=== PATIENT | female | born 1975 ===

== ENCOUNTER 2016-09-28 19:37 | Emergency (ER) | payer SELFPAY ==
[2016-09-28 20:16] VITALS: BMI 29.2
[2016-09-28 20:38] VITALS: RESP 18; TEMP 98.1
[2016-09-28 20:57] LABS: ADD MANUAL DIFF? NO
[2016-09-28 21:10] LABS: BLOOD UREA NITROGEN 12 mg/dL (7-21); CALCIUM 8.9 mg/dL (8.4-10.5); CARBON DIOXIDE 25 mmol/L (21-33); CHLORIDE 104 mmol/L (98-107); GFR AFRICAN-AMERICAN > 60; GLUCOSE,RANDOM 98 mg/dL (70-110); POTASSIUM 3.9 mmol/L (3.6-5.0); SODIUM 138 mmol/L (132-148)
[2016-09-28 21:24] LABS: BASO # 0.02 K/mm3 (0.0-2.0); BASO % 0.3 % (0.0-3.0); EOS # 0.2 (0.0-0.7); EOS % 2.5 % (1.5-5.0); GRAN # 4.09 (1.4-6.5); GRAN % 54.8 % (50.0-68.0); HEMATOCRIT 36.4 % (36.0-48.0); LYMPH # 2.6 (1.2-3.4); LYMPH % 34.6 % (22.0-35.0); MEAN CORPUSCULAR HEMOGLOBIN 30.8 pg (25.0-35.0); MEAN CORPUSCULAR HGB CONC 34.6 g/dl (31.0-37.0); MEAN PLATELET VOLUME 12.5 fl (7.0-11.0); MONO # 0.6 (0.1-0.6); MONO % 7.8 % (1.0-6.0); PLATELET COUNT 188 10^3/uL (120.0-450.0); RED CELL DISTRIBUTION WIDTH 12.6 % (11.5-14.5); WHITE BLOOD COUNT 7.5 10^3/ul (4.5-11.0)
[2016-09-28] MEDS ORDERED: Iohexol 350 MG/100 ML VIAL ONE (21:24)
--- NOTE | 2016-09-28 22:37 | CT ---
EXAM: CT Maxillofacial With Intravenous Contrast. CLINICAL HISTORY: 40 years old, female; Pain; Face pain; Additional info: R facial swelling; Dental pain TECHNIQUE: Axial computed tomography images of the face with intravenous contrast. This CT exam was performed using one or more of the following dose reduction techniques: automated exposure control, adjustment of the mA and/or kV according to patient size, and/or use of iterative reconstruction technique. Coronal and sagittal reformatted images were created and reviewed. CONTRAST: 94 mL of OMNI 350 administered intravenously. COMPARISON: No relevant prior studies available. FINDINGS: Bones/joints: No acute fracture. Soft tissues: 0.4 x 1.0 x 0.4 cm peripheral enhancing collection along RIGHT maxilla at level of premolar. Moderate adjacent soft tissue swelling/stranding. Orbits: Unremarkable as visualized. Sinuses: Mild mucosal thickening of RIGHT maxillary sinus. Scattered minimal mucosal thickening of remaining sinuses. No air-fluid levels. Dental: Dental leslie of RIGHT maxillary premolar with disruption of lateral cortex. IMPRESSION: 1. Dental disease with small periodontal abscess. 2. Incidental/non-acute findings are described above.
--- NOTE | 2016-09-28 23:16 | ED PDOC ---
Arrival/HPI - General Chief Complaint: Dental Pain Time Seen by Provider: 09/28/16 20:39 Historian: Patient - History of Present Illness Narrative History of Present Illness (Text): 09/28/16 23:12 40 y.o. female who denies any past medical history who is here in the ED with complaint of R upper dental pain that turned into R facial swelling with pain today. No visual changes or difficulty breathing or fever or n/v. Symptom Onset: Gradual Symptom Course: Worsening Past Medical History - Infectious Disease Hx of Infectious Diseases: None - Renal Hx Kidney Stones: Yes - Psychiatric Hx Substance Use: No - Surgical History Other/Comment: kidney stones sx - Anesthesia Hx Anesthesia: Yes Hx Anesthesia Reactions: No Hx Malignant Hyperthermia: No Family/Social History Family/Social History: No Known Family HX Smoking Status: Never Smoked Hx Alcohol Use: No Hx Substance Use: No Allergies/Home Meds Allergies/Adverse Reactions: Allergies No Known Allergies Allergy (Verified 09/28/16 20:16) Review of Systems - Review of Systems Constitutional: absent: Fevers Eyes: absent: Vision Changes ENT: Other (dental pain) Respiratory: absent: SOB Cardiovascular: Normal Gastrointestinal: absent: Nausea, Vomiting Physical Exam Vital Signs Temp Pulse Resp BP Pulse Ox 09/28/16 22:45 68 18 115/62 100 09/28/16 20:38 98.1 F 69 18 154/93 H 99 Temperature: Afebrile Blood Pressure: Normal Pulse: Regular Respiratory Rate: Normal Appearance: Positive for: Non-Toxic, Other (R facial swelling) Pain Distress: None Mental Status: Positive for: Alert and Oriented X 3 - Systems Exam Head: Present: Atraumatic, Normocephalic, Other (R facial swelling with erythema and tenderness) Pupils: Present: PERRL Conjunctiva: Present: Normal Mouth: Present: Moist Mucous Membranes Pharnyx: Present: Normal, Other (R first premolar with tenderness and mild gum swelling). No: ERYTHEMA Neck: Present: Normal Range of Motion Respiratory/Chest: Present: Clear to Auscultation, Good Air Exchange. No: Respiratory Distress, Accessory Muscle Use Cardiovascular: Present: Regular Rate and Rhythm, Normal S1, S2. No: Murmurs Abdomen: Present: Normal Bowel Sounds. No: Tenderness, Distention, Peritoneal Signs Back: Present: Normal Inspection Upper Extremity: Present: Normal Inspection. No: Cyanosis, Edema Lower Extremity: Present: Normal Inspection. No: Edema Neurological: Present: GCS=15, CN II-XII Intact, Speech Normal Psychiatric: Present: Alert, Oriented x 3, Normal Insight, Normal Concentration Medical Decision Making ED Course and Treatment: 09/28/16 23:17 Patient with R facial swelling associated with pain of the right first premolar. Exam is consistent with facial cellulitis. Findings are concerning on CT for abscess. 09/28/16 23:26 EXAM: CT Maxillofacial With Intravenous Contrast. FINDINGS: Bones/joints: No acute fracture. Soft tissues: 0.4 x 1.0 x 0.4 cm peripheral enhancing collection along RIGHT maxilla at level of premolar. Moderate adjacent soft tissue swelling/stranding. Orbits: Unremarkable as visualized. Sinuses: Mild mucosal thickening of RIGHT maxillary sinus. Scattered minimal mucosal thickening of remaining sinuses. No air-fluid levels. Dental: Dental leslie of RIGHT maxillary premolar with disruption of lateral cortex. IMPRESSION: 1. Dental disease with small periodontal abscess. 2. Incidental/non-acute findings are described above. 09/28/16 23:33 Given abscess with facial cellulitis pressing toward the right infraorbital area - patient will need iv abx and OMFS assessment for abscess. Case discussed with [place]'s OMFS resident, Dr. Price, who said the patient may be transferred to the ER for OMFS team evaluation pending acceptance by ED attending. Case discussed with [facility] ED attending, Dr. Pinto, who accepted the patient for transfer. Patient signed the transfer form, accepting the transfer. - Lab Interpretations Lab Results: 09/28/16 20:51 09/28/16 20:51 Lab Results 09/28/16 20:51: WBC 7.5, RBC 4.09, Hgb 12.6, Hct 36.4, MCV 89.0, MCH 30.8, MCHC 34.6, RDW 12.6, Plt Count 188, MPV 12.5 H, Gran % 54.8, Lymph % (Auto) 34.6, [place] % (Auto) 7.8 H, Eos % (Auto) 2.5, Baso % (Auto) 0.3, Gran # 4.09, Lymph # 2.6, [place] # 0.6, Eos # 0.2, Baso # 0.02, Sodium 138, Potassium 3.9, Chloride 104 , Carbon Dioxide 25, Anion Gap 13, BUN 12, Creatinine 0.6, Est GFR ( Amer ) > 60, Est GFR (Non-Af Amer) > 60, Random Glucose 98, Calcium 8.9 - RAD Interpretation Radiology Orders: 09/28/16 20:44 MAXILLOFACIAL W/CONTRAST [CT] Stat - Medication Orders Current Medication Orders: Discontinued Medications Clindamycin Phosphate 600 mg/ (Sodium Chloride) 54 mls @ 108 mls/hr IVPB STAT STA PRN Reason: Protocol Stop: 09/28/16 23:12 Last Admin: 09/28/16 22:59 Dose: 108 MLS/HR eMAR Start Stop Document 09/28/16 22:59 SB (Rec: 09/28/16 22:59 SB [id number]) Intravenous Solution Start Date 09/28/16 Start Time 22:59 End Date 09/28/16 Iohexol (Omnipaque 350 100 Ml) Confirm Administered Dose 350 mg .ROUTE .STK-MED ONE Stop: 09/28/16 21:25 Ketorolac Tromethamine (Toradol) 30 mg IVP STAT STA Stop: 09/28/16 20:46 Last Admin: 09/28/16 20:59 Dose: 30 MG IVP Administration Document 09/28/16 20:59 SB (Rec: 09/28/16 20:59 SB [id number]) Charges for Administration # of IVP Administrations 1 Disposition/Present on Arrival - Present on Arrival Any Indicators Present on Arrival: No History of DVT/PE: No History of Uncontrolled Diabetes: No Urinary Catheter: No History of Decub. Ulcer: No History Surgical Site Infection Following: None - Disposition Have Diagnosis and Disposition been Completed?: Yes Diagnosis: Dental abscess, Cellulitis of face Disposition: Trans to Other Acute Care Hosp Disposition Time: 23:10 Patient Plan: Transfer To ([facility] Patient Problems: Current Active Problems Problem Status Diagnosed Dental abscess Acute Condition: STABLE Discharge Instructions (ExitCare): Cellulitis (ED)
[2016-09-29 01:51] VITALS: BP 128/55; PULSE 69; O2SAT 99
== END 2016-09-29 01:40 | disposition short-term general hospital (02) ==
LOC: ED 19:37
DX: K04.7 Periapical abscess without sinus (principal); L03.211 Cellulitis of face
CPT/HCPCS: 70488; 80048; 85025; 96374; 99283; J1885; Q9967